=== PATIENT | male | born 1960 | race Caucasian/White ===

== ENCOUNTER → 2017-02-03 | Outpatient (CLI) | payer BC ==
--- NOTE | 2017-02-05 09:48 | PE ---
EXAMINATION TYPE: PET CT fusion skull to thigh DATE OF EXAM: 02/03/2017 11:28 AM COMPARISON: Outside PET/CT October 27, 2016 and original study June 03, 2016 HISTORY: Lung cancer progress study. Completed chemotherapy one month ago. Completed radiation treat ment 2 months ago. Had left lung surgery May 13, 2016. TECHNIQUE: Following the intravenous administration of 11.65 mCi of F-18 FDG, whole body images are performed from the skull base to the midthigh. Images are reviewed on the computer in the coronal, a xial, and sagittal planes. Reconstructed rotating images are created on independent workstation and reviewed on the computer. A localization and attenuation correction CT is performed in conjunction with the PET scan. SCAN: Subsequent Scan FINDINGS: SKULL BASE AND NECK: Area of diminished uptake left frontal lobe correlates with encephalomalacia or infarct on high most axial images. Adjacent craniotomy is present. Aneurysm clip left M1 origin is n oted. Mild increase uptake right-sided vocal cords is seen without suspicious nodularity or thickening favo r physiologic. CHEST, MEDIASTINUM, AND HILAR REGION: New left upper lobe masslike triangular shaped consolidation is seen in the apex extending to pleural surface measuring 7.8 x 3.7 cm on axial image 91 with suggesti on of some punctate calcification posteriorly on this image, max SUV centrally and inferiorly near ax ial image 94 is 5.11. Left-sided volume loss is seen with mediastinal shift. Area of initial neoplasm left hilar region near axial image 107 show some residual soft tissue withou t abnormal hypermetabolic uptake, difficult to accurately measure, not significantly changed from nawaf or. ABDOMEN AND PELVIS: No suspicious hypermetabolic uptake is seen in the abdomen or pelvis. OSSEOUS STRUCTURES: No suspicious hypermetabolic uptake is seen in osseous structures. OTHER CT: Posterior dermal lesions right upper thorax remains stable in size and appearance, favor se baceous cysts or other dermatologic benign etiology. There is new small pericardial effusion present. Coronary artery calcification is redemonstrated. The re is background mild to moderate emphysematous change again seen. There is mild to moderate calcified atherosclerotic change of aorta and branch vessels. Ascending aor ta measures 3.8 cm in diameter on axial image 112. Tiny splenule is seen in splenic hilum. There is multilevel spurring in the spine present. Some scattered pelvic phleboliths are seen. Some scattered colonic diverticula are present. IMPRESSION: No evidence of new hypermetabolic uptake at area of primary neoplasm left hilar region bu t new area of atelectatic change with left-sided volume loss left upper lobe is noted with mild uptak e inferiorly and medially worrisome for neoplastic recurrence near site of original neoplasm. Conside r short-term PET/CT follow-up in 3 months time or bronchoscopy correlation.
== END | disposition home or self-care (01) ==
LOC: RADPETMAIN 08:18
PROVIDERS: ATTEND Internal Medicine Hematology & Oncology
DX: C34.32 Malignant neoplasm of lower lobe, left bronchus or lung (principal); J98.11 Atelectasis; J98.4 Other disorders of lung
CPT/HCPCS: 78815; A9552

== ENCOUNTER → 2017-08-04 | Outpatient (CLI) | payer BC ==
--- NOTE | 2017-08-05 14:20 | PE ---
Nuclear medicine PET/CT HISTORY: Lung carcinoma, subsequent Patient received 12.8 mCi F-18 FDG intravenously in delayed scanning was performed from the skull bas e to the mid thighs. Localization and attenuation correction CT scan was also performed, exam is arya elated to previous nuclear medicine PET/CT 02/03/2017 Neck and chest: Asymmetric uptake seen within the subglottic tissues, increased on the right as on pr ior exam, SUV 5.4. Craniotomy change again noted with aneurysm clipping at the skull base level. Emph ysematous changes are again noted within the lungs. The left upper lobe soft tissue mass shows a francine lar appearance to prior exam. There is some associated hypermetabolic uptake, SUV is greatest central ly measuring 5.6. The more peripheral uptake is improved in the left upper lobe as compared to prior. There is some mass effect on the left mainstem bronchus which is narrowed extending into the segment al bronchi centrally. No pleural or pericardial effusion. Mild uptake along the time shows a similar appearance to prior exam. There is a pericardial effusion as on prior. Abdomen pelvis: No suspicious hypermetabolic uptake. No evident adrenal mass. Uptake within the bowel is likely physiologic. Diverticular change noted within the sigmoid colon. Osseous structures are stable IMPRESSION: Evidence of tumor response as described.
== END | disposition home or self-care (01) ==
LOC: RADPETMAIN 09:21
PROVIDERS: ATTEND Internal Medicine Hematology & Oncology
DX: C34.32 Malignant neoplasm of lower lobe, left bronchus or lung (principal)
CPT/HCPCS: 78815; A9552

== ENCOUNTER → 2017-12-27 | Outpatient (CLI) | payer BC ==
--- NOTE | 2017-12-28 00:13 | CT ---
EXAMINATION TYPE: CT chest w con DATE OF EXAM: 12/27/2017 COMPARISON: PET/CT 08/04/2017 HISTORY: 57-year-old male Loss of voice x 1 1/2 weeks. History of lung cancer. Observe for mets. TECHNIQUE: Contiguous axial scanning of the chest after the administration of 100 mL of Isovue 300. Coronal/sagittal reconstructions performed. CT DLP: 430.4mGycm. Automatic exposure control utilized for a dose reduction. FINDINGS: The heart is normal size with a increasing moderate size anterior pericardial effusion measuring 1.8 cm thick versus 1.1 cm, previously. Coronary vessel calcifications are present and are unremarkable f or coronary artery disease. 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 The ascending aorta is ectatic at 3.6 cm. Convention arch ve ssel branching anatomy. Redemonstrated is soft tissue thickening along the left hilum. This encases and attenuates the superi or left pulmonary vein and left suprahilar soft tissue density adjacent to the AP window seems to be increased though that direct comparison to the 08/04/[address] is limited due to noncontrast nature of that attenuation correction CT. Partial collapse extending into the left upper lobe remains consolidation and atelectasis extending t o the pleural surface at the apex. Mild to moderate emphysematous change is present. No consolidation or pleural effusion. Small hiatal hernia. Stable low density nodularity left adrenal gland measuring 2.9 x 1.7 cm. Attenua tion of 4 Hounsfield units on the patient's 08/04/2017 PET/CT suggests underlying adrenal adenoma. Sp lenule and a central left renal cyst measuring 1.9 cm. Bones: No osseous process. There are cutaneous/subcutaneous base cystic lesions along the right poste rior and mid upper back measuring 4.5 and 2.7 cm. These were present on prior PET/CT as well but did not show discrete FDG uptake. Findings suggest large sebaceous cysts. IMPRESSION: 1. Comparison is made to the attenuation correction CT from the PET scan of 08/04/2017. Direct compar bert is difficult due to the noncontrast nature of the comparison study. 2. There seems to be interval increase in the bulk of the left suprahilar soft tissue adjacent to the AP window. This currently measures 3.6 x 1.8 cm, axial image 23, and may have measured 2.8 cm, previ ously. This abuts the left main pulmonary artery and is contiguous with soft tissue thickening encasi ng and attenuating the superior left pulmonary vein. Some local tumor progression is difficult to exc lude especially given the patient's new symptoms. 3. Continued partial left upper lobe collapse extending up to the left apex. 4. Increased, now moderate sized anterior pericardial effusion (1.8 cm thick versus 1.1 cm, previousl y). 5. COPD, small hiatal hernia, stable 2.9 x 1.7 cm left adrenal adenoma, and cystic lesions along the upper back likely sebaceous cysts measuring up to 4.5 cm.
== END | disposition home or self-care (01) ==
LOC: RADCTMAIN 18:59
PROVIDERS: ATTEND Internal Medicine Hematology & Oncology
DX: C34.32 Malignant neoplasm of lower lobe, left bronchus or lung (principal); I31.3 Pericardial effusion (noninflammatory); J98.11 Atelectasis; J44.9 Chronic obstructive pulmonary disease, unspecified; K44.9 Diaphragmatic hernia without obstruction or gangrene
CPT/HCPCS: 71260; Q9967

== ENCOUNTER → 2018-01-12 | Outpatient (CLI) | payer BC ==
--- NOTE | 2018-01-12 14:04 | PE ---
EXAMINATION TYPE: PET CT fusion skull to thigh DATE OF EXAM: 01/12/2018 COMPARISON: Most recent chest CT December 27, 2017. Most recent PET/CT August 04, 2017 and older studie s HISTORY: Lung cancer progress study completed chemotherapy and radiation treatment in November of last y ear. TECHNIQUE: Following the intravenous administration of 15.98 mCi of F-18 FDG, whole body images are performed from the skull base to the midthigh. Images are reviewed on the computer in the coronal, a xial, and sagittal planes. Reconstructed rotating images are created on independent workstation and reviewed on the computer. A noncontrast CT is performed in conjunction with the PET scan. SCAN: Subsequent Scan FINDINGS: SKULL BASE AND NECK: There is marked streak artifact from multiple cavitary fillings making evaluati on suboptimal with new large area suspicious hypermetabolic uptake anterior aspect of tongue near axi al image 27, max SUV is 23.02, area of involvement is roughly 3.5 x 3.3 cm with craniocaudal dimensio n of nearly 5 cm. There is redundant demonstration of additional area of curvilinear hypermetabolic uptake at level of right aspect of vocal cords slightly eccentric axial image 51 with max SUV of 7.79. CHEST, MEDIASTINUM, AND HILAR REGION: There is background of chronic emphysematous change. There is p ersistent left apical masslike consolidation extending to pleura with heterogeneous increasing hyperm etabolic uptake redemonstrated most prominent in the inferior central aspect adjacent to aortic arch, max SUV at this level is 5.31 on axial image 76. There is mediastinal invasion redemonstrated seen b est axial image 82. This is fairly similar to most recent PET/CT. There is additional 2.0 x 1.5 cm left infrahilar lymph node axial image 96 with max SUV of 4.31. There is left-sided volume loss redemonstrated. There is nonspecific subcentimeter focus increased hypermetabolic uptake left anterior chest wall celsa r thoracic abdominal junction axial image 163 with max SUV of 2.79. ABDOMEN AND PELVIS: No suspicious hypermetabolic uptake is seen. OSSEOUS STRUCTURES: No suspicious hypermetabolic uptake is noted. OTHER CT: There is partial visualization of left temporal craniectomy changes. There is partial visua lization of aneurysm clip suprasellar cistern level. Mild to moderate calcified plaque at bilateral carotid bulbs, left greater than right is redemonstrat ed. There is persistent moderate pericardial effusion measuring up to 1.4 cm thickness anteriorly axial i mage 111 stable or slightly larger versus prior PET/CT. Coronary artery calcification is redemonstrat ed which is noted marker for coronary artery disease. Hyperexpanded right lung is again seen. Tiny splenule in splenic hilum is redemonstrated. Low dense nodular thickening to left adrenal gland is unchanged favored benign hyperplasia without ab normal hypermetabolic uptake. Sigmoid colonic diverticulosis is redemonstrated. Spine is straightened. There is multilevel spurring and disc space narrowing most prominent at L2-L3 level in the lumbar spine. Fairly moderate to severe joint space loss in both hips is present. There is moderate atherosclerotic change of aorta extending into branch vessels. There are persistent right posterior thin-walled subcutaneous low dense or cystic lesions in the uppe r thorax felt to reflect sebaceous cysts. IMPRESSION: As suspected on recent CT there is interval disease progression from prior PET/CT with ne w large area of suspicious uptake involving the tongue and worsening hypermetabolic uptake at level o f right vocal cord. Advise direct visualization if has not been performed. Overall primary neoplasm l eft lung involving hilum does not show significant interval change from most recent PET/CT.
== END | disposition home or self-care (01) ==
LOC: RADPETMAIN 01-05 07:42
PROVIDERS: ATTEND Internal Medicine Hematology & Oncology
DX: C34.32 Malignant neoplasm of lower lobe, left bronchus or lung (principal)
CPT/HCPCS: 78815; A9552

== ENCOUNTER 2018-01-22 09:26 | Day surgery (SDC) | payer BC ==
[2018-01-18 15:39] VITALS: BMI 27.6
[~2018-01-22 09:26] MED LIST: ALBUTEROL NEB (CONC) 2.5 MG/0.5 ML INHALATION ONE; ATROPINE SULFATE 0.4 MG/ML 1 ML VIAL IM ONE; DEXAMETHASONE SOD PHOSPHATE 10 MG/ML 1 ML VIAL IV ONE; HYDROmorphone 0.5 MG/0.5 ML SYRINGE IVP PRN; LACTATED RINGERS 1,000 ML IV SCH; LIDOCAINE 1% 20 ML VIAL (10MG/ML) FOR IV START INTRADERMA PRN; LIDOCAINE 2% (PF) 20 MG/ML 2 ML AMP INHALATION ONE; MIDAZOLAM 2 MG/2 ML VIAL IV PRN; MORPHINE SULFATE 2 MG/ML SYRINGE IV PRN; ONDANSETRON ODT 4 MG TAB PO ONE; Pre Op ABX Message 1 EACH MISC MISCELLANE ONE; SCOPOLAMINE 1.5MG/72HR PATCH TRANSDERM ONE
[2018-01-22 09:44] VITALS: TEMP 97.3
[2018-01-22] MEDS ORDERED: LIDOCAINE 1% 20 ML VIAL (10MG/ML) FOR IV START INTRADERMA ONE (09:59)
[2018-01-22] MEDS: LACTATED RINGERS 1,000 ML IV ONE ×2 (09:59→10:22)
[2018-01-22] MEDS ORDERED: LIDOCAINE 1% INJ 10MG/ML (20 ML MDV) ONE (10:23)
[2018-01-22] MEDS ORDERED: MIDAZOLAM 2 MG/2 ML VIAL ONE (10:23)
[2018-01-22] MEDS ORDERED: PROPOFOL 10 MG/ML 20 ML VIAL IV ONE (10:23)
[2018-01-22] MEDS ORDERED: LIDOCAINE 2% INJ 20 MG/ML INTRATRACH ONE (10:30)
[2018-01-22 10:45] VITALS: RESP 20
--- NOTE | 2018-01-22 11:18 | PCN ---
PROCEDURE NOTE PROCEDURE: Bronchoscopy, airway examination, therapeutic lavage and evaluation of right vocal cord. PREOPERATIVE DIAGNOSIS: Evaluation of right vocal cord. POSTOPERATIVE DIAGNOSIS: Evaluation of right focal cord. [facility]RI[facility] [employer]OWER provided unconscious sedation and general anesthesia. The patient's procedure was done in room #1. There was informed consent. There was universal timeout the glass melt operator with Dr. Malave after the patient was adequately sedated, sedated and being fully monitored, the bronchoscope was inserted through the right nostril. It passed through the right nasopharynx into the oropharynx. The hypopharynx was identified and topicalized. The hypopharyngeal structures all appeared normal. I looked carefully at the right vocal cord to see if there was a lesion or mass. There was not. This was subjected on this was suggested on the PET-CT scan. There was no lesion noted. The left vocal cord moved poorly suggesting left vocal cord paralysis. I do not believe this is a new finding. The patient is apparently quite hoarse. I did a thorough airway examination. The right lung looked completely normal. There was residual disease noted in the left upper lobe. This corresponds to the CT scan and PET-CT imaging that was recently done. No sampling was done. There was no BAL. The patient tolerated the procedure well. The hoarseness is suspected thought to be secondary to left vocal cord paralysis from the left suprahilar mass. MMODL / IJN: [id number] /
[2018-01-22] MEDS ORDERED: IV FLUID CONTINUATION 700 ML IV ONE (11:24)
[2018-01-22 11:27] VITALS: BP 112/72; PULSE 90
== END 2018-01-22 11:26 | disposition home or self-care (01) ==
LOC: ORWHC2ENDO 09:26
PROVIDERS: ATTEND Internal Medicine Critical Care Medicine
DX: C34.90 Malignant neoplasm of unspecified part of unspecified bronchus or lung (principal); R49.0 Dysphonia; I10 Essential (primary) hypertension; E78.5 Hyperlipidemia, unspecified; J44.9 Chronic obstructive pulmonary disease, unspecified; Z87.891 Personal history of nicotine dependence; Z92.3 Personal history of irradiation; Z79.899 Other long term (current) drug therapy; Z88.8 Allergy status to other drugs, medicaments and biological substances
CPT/HCPCS: 94640; 31622; J2001 ×3; J2250; J0461; J2704; 31624

== ENCOUNTER 2018-02-21 11:28 | Day surgery (SDC) | payer BC ==
[2018-02-12 15:33] VITALS: BMI 27.3
[~2018-02-21 11:28] MED LIST changes: -ALBUTEROL NEB (CONC) 2.5 MG/0.5 ML INHALATION ONE; -ATROPINE SULFATE 0.4 MG/ML 1 ML VIAL IM ONE; -DEXAMETHASONE SOD PHOSPHATE 10 MG/ML 1 ML VIAL IV ONE; +DEXAMETHASONE SOD PHOSPHATE 4 MG/ML 1 ML VIAL IV ONE; +FAMOTIDINE 20 MG/2 ML VIAL IV ONE; -LIDOCAINE 1% 20 ML VIAL (10MG/ML) FOR IV START INTRADERMA PRN; -LIDOCAINE 2% (PF) 20 MG/ML 2 ML AMP INHALATION ONE; +MELOXICAM 7.5 MG TAB PO ONE; -MIDAZOLAM 2 MG/2 ML VIAL IV PRN; -MORPHINE SULFATE 2 MG/ML SYRINGE IV PRN; +ONDANSETRON 4 MG/2 ML VIAL IVP ONE; +ONDANSETRON 4 MG/2 ML VIAL IVP PRN; -ONDANSETRON ODT 4 MG TAB PO ONE; +OXYMETAZOLINE 0.05% NASL SPRAY 1 SPRAY BOTTLE NASAL ONE; -Pre Op ABX Message 1 EACH MISC MISCELLANE ONE; -SCOPOLAMINE 1.5MG/72HR PATCH TRANSDERM ONE; +ceFAZolin 1,000 MG in DEXTROSE/WATER 1 50ML.BAG IV ONE; +fentaNYL (PF) 50 MCG/ML 2 ML AMP IV PRN
[2018-02-21 11:48] VITALS: RESP 16; TEMP 98
[2018-02-21] MEDS ORDERED: LIDOCAINE 1% 20 ML VIAL (10MG/ML) FOR IV START INTRADERMA ONE (11:54)
[2018-02-21] MEDS ORDERED: DEXAMETHASONE SOD PHOS (MDV) 100 MG/10 ML VIAL ONE (13:00)
[2018-02-21] MEDS ORDERED: PROPOFOL 10 MG/ML 20 ML VIAL IV ONE (13:00)
[2018-02-21] MEDS ORDERED: HYDROmorphone (PF) 1 MG/ML ONE (13:00)
[2018-02-21] MEDS ORDERED: fentaNYL (PF) 50 MCG/ML 2 ML AMP ONE (13:00)
[2018-02-21] MEDS ORDERED: MIDAZOLAM 2 MG/2 ML VIAL ONE (13:00)
[2018-02-21] MEDS ORDERED: BUPIVACAINE (PF) 0.5% 30 ML VIAL SQ ONE ×3 (13:24→14:14)
[2018-02-21] MEDS ORDERED: LIDOCAINE 1%-EPI 1:100,000 20 ML VIAL SQ ONE ×5 (13:24→14:14)
[2018-02-21] MEDS ORDERED: IV FLUID CONTINUATION 1,000 ML IV ONE (15:06)
--- NOTE | 2018-02-21 15:31 | P.OP ---
Date of Procedure: 02/21/18 Preoperative Diagnosis: Left vocal cord paralysis with associated aspiration Postoperative Diagnosis: Same Procedure(s) Performed: Left medialization thyroplasty (laryngoplasty) and direct microscopic laryngoscopy Anesthesia: MAC Surgeon: Barrington Hawkins Estimated Blood Loss (ml): 5 Pathology: none sent Condition: stable Disposition: PACU Indications for Procedure: This patient has a total left vocal cord paralysis with associated aspiration and aphonia. Medialization was recommended and the patient agreed. All risks, benefits, and alternative therapies were discussed. Consent was obtained and all questions were answered. Operative Findings: Left vocal cord paralysis in the lateral position, excellent voice with a #9 implant Description of Procedure: This patient was taken to the operative room and placed in the supine position. IV sedation was administered to the patient through a functioning IV line and monitored throughout the entire case by the department of anesthesia. A direct microscopic laryngoscopy was performed with use of a Zeiss microscope. Direct visualization was performed. We found a-LEFT VOCAL CORD PARALYSIS IN THE PARAMEDIAN POSITION. The neck was sterilely prepped and draped in usual fashion and the incision was marked. With use of lidocaine 1% with epinephrine 12 1000, the skin and deeper strap muscles were anesthetized. An incision was made over the lower portion of the thyroid cartilage horizontally in the neck. Hemostasis was obtained with use of electrocoagulation realizing a #12 setting without the flow of oxygen to prevent any fire risk. We dissected through the platysmas muscle to the strap muscles. We the strap muscles in the midline. We then exposed the thyroid cartilage the appropriate side of surgery. We then made a window into the lower portion of the thyroid cartilage in the usual fashion for Fishman implant to be inserted. We then used with the sizer several different implants resistant to the voice and checked for stridor utilizing implants from #7-10. WE UTILIZED A #9 MALE FISHMAN IMPLANT ON THE LEFT SIDE. This was secured into position in the usual fashion. We then irrigated and then closed the strap muscles with 4-0 Vicryl in an interrupted type fashion. The close the platysmas layer of 4-0 Vicryl in an interrupted type fashion. We then closed the deep subcutaneous tissue with 4-0 Monocryl in an interrupted type fashion. We then closed the skin with a 5-0 Prolene in a running nonlocking fashion. Bacitracin ointment and Telfa were applied along with a Medpor tape. The patient tolerated this well and the patient is to follow up with me in the office in 1 week. One week voice rest restrictions were given that her absolute area and no heavy lifting or bending. She was also advised that if any stridor should occur she should come to the emergency room. They have been given my cell phone number and contact information.
[2018-02-21 15:52] VITALS: BP 130/77; PULSE 84
== END 2018-02-21 16:16 | disposition home or self-care (01) ==
LOC: OR 11:28
PROVIDERS: ATTEND Otolaryngology
DX: J38.01 Paralysis of vocal cords and larynx, unilateral (principal); Z87.891 Personal history of nicotine dependence; Z79.899 Other long term (current) drug therapy

== ENCOUNTER → 2018-04-12 | Outpatient (CLI) | payer BC ==
--- NOTE | 2018-04-12 12:10 | CT ---
EXAMINATION TYPE: CT chest w con DATE OF EXAM: 04/12/2018 COMPARISON: PET/CT dated 01/12/[address] chest dated 12/27/2017. Follow-up exam. HISTORY: Lung cancer, follow up exam. CT DLP: 452.6 mGycm. Automated Exposure Control for Dose Reduction was Utilized. TECHNIQUE: CT scan of the thorax is performed following with IV Contrast, patient injected with 100 mL of Isovue 300. FINDINGS: LUNGS: When measured at the same location the left superhilar soft tissue density encasing surroundin g bronchi and pulmonary vasculature measures approximately 2.1 x 3.5 cm as opposed to the prior measu rement of 1.8 x 3.6 cm. Overall this is similar to prior given differences in slice selection. Howeve r there is progressive subsequent collapse of the medial left upper lobe. The degree of extent into t he left hilar region and mediastinum at the level of the main pulmonary artery appears similar to the prior as this was marked on series 3 image 30 on the prior and compared to image 28 of series 3 on t tami's examination. Bullous emphysematous changes are noted at the right lung apex with moderate centrilobular emphysema throughout, right greater than left. Solitary calcified benign parenchymal granuloma is seen. No new pulmonary nodules or masses are identified. MEDIASTINUM: There is no evidence of cardiomegaly. However there is redistribution of the previously seen pericardial fluid now layering more posteriorly independently measuring up to 1.2 cm in greatest thickness, previously 1.8. No pericardial enhancement is seen to suggest current pericarditis. The a ortic root again is mildly dilated measuring approximately 4.3 cm on series 6 image 36. Ascending tho racic aorta and main pulmonary artery are within normal limits of size. No new enlarged mediastinal l ymph nodes are appreciated. OTHER: The left adrenal gland nodule is low-density appearing slightly decreased in size measuring 2. 9 x 1.2 cm as opposed to the prior of 2.9 x 1.7 cm. This is low-density and again favored to represen t a benign lesion. Therefore differences in measurement may relate to slice selection. There is a new arterially enhancing hepatic lesion that is seen adjacent to a hepatic vein on series 3 image 60 fam suring 7 mm. Given the proximity to hepatic vein as could be artifactual. Redemonstration of probable subcutaneous sebaceous cysts are seen along the central and right paracentral upper thoracic subcuta neous soft tissues. IMPRESSION: 1. Overall stable intrathoracic disease. Similar size of the left perihilar and suprahilar soft tissu e densities with extent into the mediastinum however there is progressive left upper lobe medial lung postobstructive atelectasis. No new pulmonary nodule or mediastinal adenopathy. 2. Arterially enhancing hepatic focus adjacent to a hepatic vein that may be artifactual however this could relate to new site of metastasis and attention on follow-up exams is recommended given its cur rent subcentimeter size. 3. Redistribution of the location of the moderate pericardial effusion without gross progression or c urrent evidence of pericarditis.
== END | disposition home or self-care (01) ==
LOC: RADCTMAIN 09:23
PROVIDERS: ATTEND Internal Medicine Hematology & Oncology
DX: C34.32 Malignant neoplasm of lower lobe, left bronchus or lung (principal); I31.3 Pericardial effusion (noninflammatory); Z88.8 Allergy status to other drugs, medicaments and biological substances
CPT/HCPCS: 71260; Q9967

== ENCOUNTER → 2018-09-09 | Outpatient (CLI) | payer BC ==
--- NOTE | 2018-09-09 10:07 | CT ---
EXAMINATION TYPE: CT chest w con DATE OF EXAM: 09/09/2018 COMPARISON: Chest CT April 12, 2018 and older studies. PET/CT January 12, 2018 and older studies HISTORY: Lung CA suspected metastatic disease per order. Completed chemotherapy and radiation treatme nt in November 2016 CT DLP: 440.4 mGycm. Automated Exposure Control for Dose Reduction was Utilized. TECHNIQUE: CT scan of the thorax is performed following with IV Contrast, patient injected with 100 mL of Isovue 300. FINDINGS: LUNGS: There is redemonstration of elevated left hemidiaphragm. There is background moderate emphysem atous change in the upper lungs redemonstrated. There is persistent left suprahilar lobulated soft ti ssue density extending superiorly through the left upper lobe to the left lung apex with more hyperde nse lateral component abutting the pleural surface unchanged in size and appearance from prior study difficult to accurately measure due to lobulated confluent in appearance there is persistent occlusio n of the left upper lung superior medial bronchus axial image 24 unchanged from prior. There is encas ement of the left upper lung pulmonary artery similar to prior. Right lung shows no new suspicious no ncalcified nodules. Some medial scarring remains present near axial image 25. No pleural effusion or pneumothorax is seen bilaterally. MEDIASTINUM: There are no new greater than 1 cm hilar or mediastinal lymph nodes. There is moderate-s ized pericardial effusion redemonstrated more prominent anteriorly on current study where was more pr ominent right and inferior aspect on prior study. Coronary artery calcification and/or stent proximal LAD is redemonstrated. OTHER: Stable thickening of bilateral adrenal glands remains present. Slight scoliotic curvature to v isualize spine is again seen. Hyperdense ill-defined focus right hepatic lobe axial image 57 is not s ignificantly changed from prior and is nonspecific. There is redemonstration of posterior 2.6 cm thin -walled cyst or cystic lesion abutting skin surface just right of midline in the upper thoracic back region axial image 9 presumed benign or dermatologic such as sebaceous cyst. IMPRESSION: Overall stable findings favoring controlled neoplasm. No obvious neoplastic progression i dentified.
== END ==
LOC: RADCTMAIN 08:55
PROVIDERS: ATTEND Internal Medicine Hematology & Oncology
DX: C34.32 Malignant neoplasm of lower lobe, left bronchus or lung (principal)
CPT/HCPCS: 71260; Q9967

== ENCOUNTER → 2019-02-03 | Outpatient (CLI) | payer MEDICARE, BC ==
--- NOTE | 2019-02-03 09:54 | CT ---
EXAMINATION TYPE: CT chest w con DATE OF EXAM: 02/03/2019 COMPARISON: Prior CT chest 09/09/2018 HISTORY: Lung cancer CT DLP: 408.3 mGycm Automated exposure control for dose reduction was used. CONTRAST: CT scan of the chest is performed with IV Contrast, patient injected with 100 mL of Isovue 300. FINDINGS: LUNGS: The patient's mass which extends into the mediastinum in the left upper lobe has increased in size in the interval, there is abnormal soft tissue extending towards the left lung apex as on prior exam as well as extension to the anterior pleural surface which has progressed in the interval. The m ass measures approximately greater than 8 cm in greatest transverse dimension similar to prior pipe i s now measuring 6.2 cm in cephalad to caudal dimension as compared to less than 5 cm on prior and gre ater than 9 cm in anterior to posterior dimension as compared to approximately 8 cm on prior. There i s been interval increase in the abnormal soft tissue within the mediastinum which is abutting the pul monary artery as well as aorta. Superior mediastinal adenopathy has developed in the interval. There is no pleural or pericardial effusion. No additional lung mass evident. Emphysematous changes are aga in noted. MEDIASTINUM: There is encasement of the left pulmonary artery and mainstem bronchus, segmental bronch i by the mass. Some retraction of the pulmonary artery and mainstem bronchus towards the left lung ap ex, there is volume loss in the left hemithorax, elevation of left hemidiaphragm. There are coronary artery calcifications. Pericardial effusion is again noted measuring approximately 15 mm in thickness anteriorly which is similar to prior. AORTA: Root of the aorta measures 4.6 cm. OTHER: The adrenal glands show a somewhat prominent appearance bilaterally. Cortical cyst again note d within the left kidney. IMPRESSION: Interval progression of patient's mass as described involving the mediastinum, left uppe r lobe. Aortic aneurysm. Additional findings above.
== END | disposition home or self-care (01) ==
LOC: RADCTMAIN 08:09
PROVIDERS: ATTEND Internal Medicine Hematology & Oncology
DX: Z03.89 Encounter for observation for other suspected diseases and conditions ruled out (principal); C34.32 Malignant neoplasm of lower lobe, left bronchus or lung; J43.9 Emphysema, unspecified; Q79.1 Other congenital malformations of diaphragm; I31.3 Pericardial effusion (noninflammatory); I25.10 Atherosclerotic heart disease of native coronary artery without angina pectoris; I71.9 Aortic aneurysm of unspecified site, without rupture; J98.59 Other diseases of mediastinum, not elsewhere classified; Z88.8 Allergy status to other drugs, medicaments and biological substances
CPT/HCPCS: 71260; Q9967

== ENCOUNTER → 2019-02-08 | Outpatient (CLI) | payer MEDICARE, BC ==
--- NOTE | 2019-02-10 13:12 | PE ---
Nuclear medicine PET/CT HISTORY: Lung carcinoma, subsequent Patient received F-18 FDG intravenously in delayed scanning was performed from the skull base to the mid thighs. Localization and attenuation correction CT scan was performed. Correlation to prior exam nuclear Medicine PET/CT 01/12/2018, CT chest 02/03/2019 Neck and chest: The left upper lobe mass is again noted as described in prior CT, pleural or mediasti nal extensions are present, SUV is approximately 9.7. Supraclavicular node is present in the left not mentioned on prior CT measuring approximately 2.4 cm, SUV is 8.2. Superior mediastinal node on the r ight lung the surface of the trachea is not enlarged however SUV is 8.8. Pericardial effusion is pres ent. There is uptake seen within the region of the tongue into the right of midline within the mouth which is indeterminate. SUV is 19, suggest direct visualization. Uptake in the vocal cords is possibl y physiologic. ABDOMEN: Adjacent to the left ninth rib there is some soft tissue medially within the abdomen which s how some associated hypermetabolic uptake, SUV is 7.7. Right: Uptake may be physiologic. Osseous structures show degenerative disc changes in the lumbar spine. IMPRESSION: Metastatic disease as described. There is progression of the mass and abnormal uptake as described.
== END | disposition home or self-care (01) ==
LOC: RADPETMAIN 13:36
PROVIDERS: ATTEND Internal Medicine Hematology & Oncology
DX: C34.32 Malignant neoplasm of lower lobe, left bronchus or lung (principal); R93.5 Abnormal findings on diagnostic imaging of other abdominal regions, including retroperitoneum
CPT/HCPCS: 78815; A9552

== ENCOUNTER → 2019-02-24 | Day surgery (SDC) | payer MEDICARE, BC ==
[~2019-02-24] MED LIST changes: +ALPRAZolam 0.5 MG TAB PO STA; -DEXAMETHASONE SOD PHOSPHATE 4 MG/ML 1 ML VIAL IV ONE; -FAMOTIDINE 20 MG/2 ML VIAL IV ONE; -HYDROmorphone 0.5 MG/0.5 ML SYRINGE IVP PRN; -LACTATED RINGERS 1,000 ML IV SCH; -MELOXICAM 7.5 MG TAB PO ONE; -ONDANSETRON 4 MG/2 ML VIAL IVP ONE; -ONDANSETRON 4 MG/2 ML VIAL IVP PRN; -OXYMETAZOLINE 0.05% NASL SPRAY 1 SPRAY BOTTLE NASAL ONE; -ceFAZolin 1,000 MG in DEXTROSE/WATER 1 50ML.BAG IV ONE; -fentaNYL (PF) 50 MCG/ML 2 ML AMP IV PRN
[2019-02-24 09:41] VITALS: RESP 22; TEMP 97.8
[2019-02-24 09:45] LABS: Mean Platelet Volume 7.3; Platelet Count 539 k/uL (150-450)
[2019-02-24 09:52] LABS: Prothrombin Time 10.5 sec (9.0-12.0)
--- NOTE | 2019-02-24 11:13 | XR ---
EXAMINATION TYPE: XR chest 1V portable DATE OF EXAM: 02/24/2019 COMPARISON: 02/03/2019 HISTORY: Post lung biopsy TECHNIQUE: Single frontal view of the chest is obtained. FINDINGS: Large left upper lung mass noted. No sizable pneumothorax. Elevation left hemidiaphragm. R ight lung clear. Arthropathy of the shoulders with chronic left clavicle fracture. Could not exclude adenopathy in the right paratracheal space. IMPRESSION: No pneumothorax. Large mass again persists in the left upper lobe.
--- NOTE | 2019-02-24 12:37 | CT ---
EXAMINATION TYPE: CT biopsy lung LT DATE OF EXAM: 02/24/2019 HISTORY: Lung cancer, lung mass COMPARISON: Nuclear medicine PET/CT 02/08/2019 Maximal barrier technique was utilized. The skin overlying a suitable path to the lesion in the left upper lobe was localized using CT and the overlying skin was prepped and draped. Lidocaine used for local anesthesia. A skin alcides made with a scalpel. Using CT guidance, access was gained to the les ion with a 17-gauge needle. 18-gauge core specimen submitted to cytology. 2 passes were performed in all. Following the procedure no immediate complications. The patient is discharged in stable cond ition. Hemostasis achieved. IMPRESSION: SUCCESSFUL CT GUIDED CORE BIOPSY left upper lobe lung mass. PATHOLOGY PENDING. THIS PROCEDURE WAS P ERFORMED BY THE UNDERSIGNED.
--- NOTE | 2019-02-24 13:05 | XR ---
EXAMINATION TYPE: XR chest 1V portable DATE OF EXAM: 02/24/2019 COMPARISON: Prior chest x-ray 02/24/2019 and earlier time HISTORY: Status post lung biopsy TECHNIQUE: Single frontal view of the chest is obtained. FINDINGS: There is no interval change. IMPRESSION: No evident complication status post left lung biopsy.
[2019-02-24 13:30] VITALS: BP 86/54; PULSE 82
== END ==
LOC: RADPROMAIN 08:49
PROVIDERS: ATTEND Internal Medicine Hematology & Oncology
DX: R91.8 Other nonspecific abnormal finding of lung field (principal); Z85.118 Personal history of other malignant neoplasm of bronchus and lung; Z88.8 Allergy status to other drugs, medicaments and biological substances
CPT/HCPCS: 36415; 71045; 77012; 85049; 85610; 88305